=== PATIENT | female | born 1955 | race Hispanic/Latino ===

== ENCOUNTER → 2017-11-01 | Outpatient (CLI) | payer OTHER | END | disposition home or self-care (01) | LOC: RAH 08:58 | PROVIDERS: ATTEND Internal Medicine Medical Oncology | DX: R92.8 Other abnormal and inconclusive findings on diagnostic imaging of breast (principal); Z85.3 Personal history of malignant neoplasm of breast | CPT/HCPCS: 77066 ==

== ENCOUNTER → 2018-12-19 | Outpatient (CLI) | payer OTHER | END | disposition home or self-care (01) | LOC: RAH 09:35 | PROVIDERS: ATTEND Internal Medicine Hematology & Oncology | DX: C50.912 Malignant neoplasm of unspecified site of left female breast (principal); Z85.3 Personal history of malignant neoplasm of breast | CPT/HCPCS: 77066 ==

== ENCOUNTER 2019-02-11 09:29 | Emergency (ER) | payer OTHER ==
[2019-02-11 10:23] LABS: APPEARANCE,URINE CLEAR (CLEAR); BILIRUBIN,URINE NEGATIVE (NEGATIVE); COLOR,URINE YELLOW (YELLOW); GLUCOSE, URINE (UA) NEGATIVE (NEGATIVE); KETONES,URINE NEGATIVE (NEGATIVE); LEUKOCYTE ESTERASE ,URINE NEGATIVE (NEGATIVE); NITRATE,URINE NEGATIVE (NEGATIVE); OCCULT BLOOD,URINE NEGATIVE (NEGATIVE); PH,URINE 5.5 (5.0-8.0); PROTEIN,URINE NEGATIVE (NEGATIVE); UROBILINOGEN,URINE 0.2 mg/dL (0.2-1.0)
== END 2019-02-11 11:45 | disposition home or self-care (01) ==
LOC: EDH 09:29
DX: F41.1 Generalized anxiety disorder (principal); R53.1 Weakness; R00.2 Palpitations; R25.1 Tremor, unspecified; Z90.49 Acquired absence of other specified parts of digestive tract; Z85.3 Personal history of malignant neoplasm of breast
CPT/HCPCS: 81003

== ENCOUNTER 2019-12-29 15:40 | Observation (INO) | payer OTHER ==
[2019-12-29] MEDS ORDERED: ONDANSETRON ODT 4 MG TAB ONE ×2 (16:39→17:59)
[2019-12-29] MEDS ORDERED: ACETAMINOPHEN ELIXIR 650 MG/20.3 ML UDCUP ONE (16:39)
[2019-12-29] MEDS ORDERED: AZITHROMYCIN 500MG+NS 250ML 250 ML IV ONE (18:02)
[2019-12-29] MEDS ORDERED: CEFTRIAXONE SODIUM 1 GM ONE (18:03)
[2019-12-29] MEDS ORDERED: DEXAMETHASONE SOD PHOSPHATE 10MG/ML 1ML VIAL ONE (19:13)
[2019-12-29] MEDS ORDERED: ONDANSETRON HCL 4 MG/2 ML VIAL IV PRN (19:30)
[2019-12-29] MEDS ORDERED: DIPHENHYDRAMINE HCL 25 MG CAPSULE PO PRN (19:30)
[2019-12-29] MEDS ORDERED: NITROGLYCERIN 0.4 MG SL TAB SL PRN (19:30)
[2019-12-29] MEDS ORDERED: ACETAMINOPHEN 325 MG TAB PO PRN ×2 (19:30)
[2019-12-29] MEDS ORDERED: FAMOTIDINE 20MG TAB 20 MG TAB PO SCH (21:00)
[2019-12-29] MEDS ORDERED: ACETAMINOPHEN 325 MG TAB ONE (21:57)
[2019-12-29] MEDS ORDERED: PANTOPRAZOLE SODIUM 40 MG TABLET.DR ONE (21:57)
[2019-12-30] MEDS ORDERED: ENOXAPARIN SODIUM 30 MG/0.3 ML SQ ONE (08:48)
[2019-12-30] MEDS ORDERED: ENOXAPARIN SODIUM 30 MG/0.3 ML SQ SCH (09:00)
[2019-12-30] MEDS ORDERED: AZITHROMYCIN 500MG+NS 250ML 250 ML IV SCH (09:00)
[2019-12-30] MEDS ORDERED: CEFTRIAXONE SODIUM 1 GM IVP SCH (09:00)
[2019-12-30] MEDS ORDERED: ACETAMINOPHEN 325 MG TAB ONE (15:13)
--- NOTE | 2019-12-30 16:19 | NUR ---
INITIAL SW spoke with patient. Patient lives with daughter. Emergency contact is Susan Inman, [phone]. No home services. DME: BPM, glucometer (no insulin). Patient is able to complete ADL's independently and doesn't drive. PCP is Dr. Aimee Kauffman. Pharmacy is [facility] located on [address] [place] [address]. DCP is home. Addendum: 12/30/19 at 1621 by ROSETTA HULL SS Amended: Links added.
--- NOTE | 2019-12-30 16:21 | NUR ---
EMERGENCY CONTACT Susan Inman (sister) - [phone]
== END 2019-12-30 16:15 | disposition home or self-care (01) ==
LOC: EDH 15:40 → INTOOBSV 18:30 → EDHIP 18:30
PROVIDERS: ADMIT Family Medicine; ATTEND Family Medicine
DX: U07.1 COVID-19 (principal); J12.89 Other viral pneumonia; E66.01 Morbid (severe) obesity due to excess calories; R11.2 Nausea with vomiting, unspecified; F41.9 Anxiety disorder, unspecified; Z68.42 Body mass index [BMI] 45.0-49.9, adult; Z85.3 Personal history of malignant neoplasm of breast
CPT/HCPCS: 36415 ×2; 71045; 80053 ×2; 81001; 82550; 82728; 83605; 83615 ×2; 83690; 83735; 83874; 84145; 84478; 84484 ×2; 85025 ×3; 85378; 85384; 85610; 85730; 86140 ×2; 87040 ×2; 87804 ×2; 87880; 93005; 99285; G0378 ×7; J0456; J0696; J1100; J1650; U0003

== ENCOUNTER 2020-01-03 11:12 | Inpatient (IN) | payer OTHER ==
[~2020-01-03] VITALS: Ht 157.5 cm; Wt 112.6 kg
[2020-01-03] MEDS ORDERED: POTASSIUM CHLORIDE 20 MEQ ERTAB PO ONE (13:53)
[2020-01-03] MEDS ORDERED: DOXYCYCLINE 100MG+NS 250ML IV SCH (14:45)
[2020-01-03] MEDS ORDERED: PHARMACY COMMUNICATION MISC SCH (14:45)
[2020-01-03] MEDS: CEFTRIAXONE SODIUM 1 GM IVP SCH (14:45)
[2020-01-03] MEDS: DOXYCYCLINE HYCLATE 100 MG TABLET PO SCH ×2 (16:00→21:00)
[2020-01-03] MEDS ORDERED: DOXYCYCLINE HYCLATE 100 MG TABLET PO ONE (16:14)
[2020-01-03] MEDS ORDERED: CEFTRIAXONE SODIUM 1 GM ONE (16:15)
[2020-01-03] MEDS ORDERED: SODIUM CHLORIDE 0.9% 100 ML IV ONE (16:17)
--- NOTE | 2020-01-03 16:50 | NUR ---
DCP: HOME WITH FAMILY Sw contacted pt's sister Susan Inman [phone]. Per sister, pt's 38yrs daughter lives at home with pt. 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 Pt is independent of all her ADLS and home management. Pt does not drive, family transports as needed. PCP is Dr Kauffman, she uses [facility]. DC plan is home with family Addendum: 01/03/20 at 1652 by SAVITA MCLAUGHLIN SS Amended: Links added.
[2020-01-03] MEDS ORDERED: AZITHROMYCIN 500MG+NS 250ML 250 ML IV ONE (17:03)
[2020-01-03] MEDS ORDERED: ONDANSETRON HCL 4 MG/2 ML VIAL ONE (18:13)
[2020-01-03 19:11] VITALS: PULSE 73; RESP 18
[2020-01-03] MEDS ORDERED: METHYLPREDNISOLONE SOD SUCC 40MG/ML 1ML ONE (20:53)
[2020-01-03] MEDS: METHYLPREDNISOLONE SOD SUCC 40MG/ML 1ML IVP SCH (21:00)
[2020-01-04] MEDS: CEFTRIAXONE SODIUM 1 GM IVP SCH ×2 (02:45→14:45)
[2020-01-04] MEDS ORDERED: DOXYCYCLINE HYCLATE 100 MG TABLET PO ONE ×2 (04:27→11:24)
[2020-01-04] MEDS ORDERED: METHYLPREDNISOLONE SOD SUCC 40MG/ML 1ML ONE ×2 (04:28→11:25)
[2020-01-04] MEDS ORDERED: CEFTRIAXONE SODIUM 1 GM ONE ×2 (04:29→13:22)
[2020-01-04] MEDS: ENOXAPARIN SODIUM 40 MG/0.4 ML SYRINGE SQ SCH (09:00)
[2020-01-04] MEDS: ASCORBIC ACID 500 MG TAB PO SCH (09:00)
[2020-01-04] MEDS: DOXYCYCLINE HYCLATE 100 MG TABLET PO SCH ×2 (09:00→21:00)
[2020-01-04] MEDS: ZINC SULFATE 220 CAPSULE PO SCH (10:00)
[2020-01-04] MEDS ORDERED: ASCORBIC ACID 500 MG TAB ONE (11:24)
[2020-01-04] MEDS ORDERED: ENOXAPARIN SODIUM 40 MG/0.4 ML SYRINGE SQ ONE (11:25)
[2020-01-04] MEDS ORDERED: ZINC SULFATE 220 CAPSULE ONE (11:25)
[2020-01-04] MEDS: METHYLPREDNISOLONE SOD SUCC 40MG/ML 1ML IVP SCH ×2 (14:00→21:00)
[2020-01-04 16:26] VITALS: BP 149/78; PULSE 95; RESP 18; TEMP 98.1
[2020-01-04 20:39] VITALS: BP 128/77; PULSE 94; RESP 18; TEMP 98.6
--- NOTE | 2020-01-04 21:03 | NUR ---
Convalescent Plasma Order Spoke with Dr. Slaomon and order given to administer convalescent plasma. Pending Type and Screen to complete registry.
[2020-01-04 23:50] VITALS: BP 133/53; PULSE 67; RESP 18; TEMP 98.6
[2020-01-05] MEDS: CEFTRIAXONE SODIUM 1 GM IVP SCH ×2 (02:21→13:56)
[2020-01-05 03:30] VITALS: BP 128/70; PULSE 71; RESP 18; TEMP 97.8
[2020-01-05] MEDS: DOXYCYCLINE HYCLATE 100 MG TABLET PO SCH ×2 (08:16→21:28)
[2020-01-05] MEDS: ASCORBIC ACID 500 MG TAB PO SCH (08:16)
[2020-01-05] MEDS: METHYLPREDNISOLONE SOD SUCC 40MG/ML 1ML IVP SCH ×3 (08:17→21:28)
[2020-01-05] MEDS: ENOXAPARIN SODIUM 40 MG/0.4 ML SYRINGE SQ SCH (08:18)
[2020-01-05 08:40] VITALS: BP 125/74; PULSE 75; RESP 18; TEMP 98.7
[2020-01-05] MEDS: ZINC SULFATE 220 CAPSULE PO SCH (09:35)
[2020-01-05 12:43] VITALS: BP 122/74; PULSE 84; RESP 18; TEMP 98.6
[2020-01-05 16:30] VITALS: BP 131/78; PULSE 78; RESP 18; TEMP 98.6
[2020-01-05 20:12] VITALS: BP 138/75; PULSE 72; RESP 18; TEMP 98.5
[2020-01-05] MEDS ORDERED: ONDANSETRON HCL 4 MG/2 ML VIAL ONE (22:25)
[2020-01-05] MEDS ORDERED: ONDANSETRON HCL 4 MG/2 ML VIAL IVP PRN (22:30)
[2020-01-05 23:41] VITALS: BP 133/65; PULSE 62; RESP 18; TEMP 98.5
[2020-01-06] MEDS: CEFTRIAXONE SODIUM 1 GM IVP SCH ×2 (03:03→14:56)
[2020-01-06 03:50] VITALS: BP 123/70; PULSE 70; RESP 18; TEMP 97.9
[2020-01-06] MEDS: ASCORBIC ACID 500 MG TAB PO SCH (07:48)
[2020-01-06] MEDS: DOXYCYCLINE HYCLATE 100 MG TABLET PO SCH ×2 (07:48→20:07)
[2020-01-06] MEDS: METHYLPREDNISOLONE SOD SUCC 40MG/ML 1ML IVP SCH ×3 (07:48→20:07)
[2020-01-06] MEDS: ENOXAPARIN SODIUM 40 MG/0.4 ML SYRINGE SQ SCH (07:50)
[2020-01-06 08:00] VITALS: BP 116/77; PULSE 85; RESP 19; TEMP 98.5
[2020-01-06] MEDS: ZINC SULFATE 220 CAPSULE PO SCH (09:44)
[2020-01-06 12:00] VITALS: BP 143/79; PULSE 75; RESP 18; TEMP 98.2
--- NOTE | 2020-01-06 14:54 | NUR ---
SITTING UP IN BED WATCHING TELEVISION. DENIES ANY C/O AT THIS TIME. AMBULATED TO RESTROOM AND BACK TO BED W/O DIFFICULTY. CALL LIGHT WITHIN REACH, VERBALIZED ABILITY TO USE.
[2020-01-06 16:00] VITALS: BP 140/75; PULSE 64; RESP 18; TEMP 98.3
[2020-01-06 20:00] VITALS: BP 139/77; PULSE 65; RESP 20; TEMP 98.4
[2020-01-06] MEDS ORDERED: METHYLPREDNISOLONE SOD SUCC 125MG/2ML VIAL IVP ONE (21:00)
[2020-01-07 00:16] VITALS: BP 136/77; PULSE 59; RESP 24; TEMP 98.5
[2020-01-07] MEDS: CEFTRIAXONE SODIUM 1 GM IVP SCH ×2 (02:42→14:09)
[2020-01-07 04:00] VITALS: BP 133/71; PULSE 61; RESP 18; TEMP 98.1
[2020-01-07] MEDS ORDERED: METHYLPREDNISOLONE SOD SUCC 125MG/2ML VIAL ONE (07:39)
[2020-01-07] MEDS: ASCORBIC ACID 500 MG TAB PO SCH (07:55)
[2020-01-07] MEDS: DOXYCYCLINE HYCLATE 100 MG TABLET PO SCH (07:55)
[2020-01-07] MEDS: METHYLPREDNISOLONE SOD SUCC 40MG/ML 1ML IVP SCH ×2 (07:56→14:09)
[2020-01-07] MEDS: ENOXAPARIN SODIUM 40 MG/0.4 ML SYRINGE SQ SCH (07:57)
[2020-01-07 08:00] VITALS: BP 136/79; PULSE 66; RESP 20; TEMP 98.2
[2020-01-07] MEDS: ZINC SULFATE 220 CAPSULE PO SCH (09:37)
--- NOTE | 2020-01-07 09:38 | NUR ---
Gaby PETER, GEOFF, IN ROOM SPEAKING WITH PT. RE:PLAN OF CARE. QUESTIONS ANSWERED BY REGIONAL DIRECTOR OF ADMISSIONS.
[2020-01-07 11:00] VITALS: BP 159/89; PULSE 87; RESP 20; TEMP 98.6
--- NOTE | 2020-01-07 13:56 | NUR ---
DR. LOMELI AND Gaby PETER, RADIO PROGRAM DIRECTOR, IN ROOM SPEAKING WITH PT. RE:PLAN OF CARE AND DISCHARGE DISPOSITION.
[2020-01-07 16:00] VITALS: BP 128/78; PULSE 84; RESP 20; TEMP 98.2
[2020-01-07 16:10] VITALS: PULSE 112; PULSE 89; RESP 18; RESP 20
--- NOTE | 2020-01-07 18:10 | NUR ---
HL REMOVED, CATHETER INTACT. DISCHARGE INSTRUCTIONS GIVEN, VERBALIZED UNDERSTANDING.
== END 2020-01-07 19:00 | disposition home or self-care (01) | DRG 177 ==
LOC: EDH 11:12 → EDHIP 14:35 → 4AH 01-04 16:26
PROVIDERS: ADMIT Internal Medicine; ATTEND Internal Medicine
DX: U07.1 COVID-19 (principal); J12.89 Other viral pneumonia; J96.01 Acute respiratory failure with hypoxia; Z68.42 Body mass index [BMI] 45.0-49.9, adult; E66.01 Morbid (severe) obesity due to excess calories; F41.9 Anxiety disorder, unspecified; Z85.3 Personal history of malignant neoplasm of breast; Z90.49 Acquired absence of other specified parts of digestive tract; Z83.3 Family history of diabetes mellitus

== ENCOUNTER → 2020-02-19 | Outpatient (CLI) | payer OTHER ==
[~2020-02-19] MED LIST: APIX2.5T PO; CEFD300C3 PO; DEXA6TAB PO
== END | disposition home or self-care (01) ==
LOC: RAH 12:42
PROVIDERS: ATTEND Family Medicine
DX: C50.919 Malignant neoplasm of unspecified site of unspecified female breast (principal)
CPT/HCPCS: 77066

== ENCOUNTER → 2021-02-18 | Outpatient (CLI) | payer OTHER | END | disposition home or self-care (01) | LOC: RAH 10:25 | PROVIDERS: ATTEND Family Medicine | DX: N64.89 Other specified disorders of breast (principal); Z85.3 Personal history of malignant neoplasm of breast; Z92.3 Personal history of irradiation | CPT/HCPCS: 77066 ==

== ENCOUNTER → 2022-06-11 | Outpatient (CLI) | payer OTHER | END | disposition home or self-care (01) | LOC: RAH 08:08 | PROVIDERS: ATTEND Family Medicine | DX: N64.89 Other specified disorders of breast (principal); R92.1 Mammographic calcification found on diagnostic imaging of breast; Z85.3 Personal history of malignant neoplasm of breast; Z98.890 Other specified postprocedural states | CPT/HCPCS: 77066 ==

== ENCOUNTER → 2023-06-15 | Outpatient (CLI) | payer MEDICARE, OTHER | END | disposition home or self-care (01) | LOC: RAH 09:23 | PROVIDERS: ATTEND Family Medicine | DX: Z12.31 Encounter for screening mammogram for malignant neoplasm of breast (principal); R92.1 Mammographic calcification found on diagnostic imaging of breast | CPT/HCPCS: 77067 ==